=== PATIENT | female | born 1940 | race Caucasian/White ===

== ENCOUNTER 2025-02-26 11:20 | Day surgery (SDC) | payer MEDICARE ==
[2025-02-26] MEDS ORDERED: PROPOFOL 20 ML ONE (12:46)
[2025-02-26] MEDS ORDERED: Lidocaine 1% PF 5 ML VIAL ONE (12:46)
== END 2025-02-26 13:40 | disposition home or self-care (01) ==
LOC: CSHSDC 11:20
PROVIDERS: ATTEND Internal Medicine Cardiovascular Disease
PROC: 5A2204Z Restoration of Cardiac Rhythm, Single (ICD-10-PCS; principal; 2025-02-26)
DX: I48.0 Paroxysmal atrial fibrillation (principal); E03.9 Hypothyroidism, unspecified; F41.9 Anxiety disorder, unspecified; F32.A Depression, unspecified; Z88.8 Allergy status to other drugs, medicaments and biological substances; Z88.1 Allergy status to other antibiotic agents; Z88.6 Allergy status to analgesic agent; Z88.2 Allergy status to sulfonamides; Z79.01 Long term (current) use of anticoagulants; Z79.890 Hormone replacement therapy
CPT/HCPCS: 92960 ×2; 93005; J2704; 93010